=== PATIENT | male | born 1985 | race Caucasian/White ===

== ENCOUNTER 2023-01-23 21:12 | Emergency (ER) | payer BC ==
[~2023-01-23] VITALS: Ht 190.5 cm; Wt 70.3 kg
[2023-01-23 21:13] VITALS: BP 128/88; TEMP 98.5
[2023-01-23] MEDS ORDERED: ACET-2605 PO (21:27)
[2023-01-23] MEDS ORDERED: DICL1KIT14 TP (21:27)
[2023-01-23] MEDS ORDERED: ONDA4TAB5 PO (21:27)
[2023-01-23] MEDS ORDERED: IBUP-1955 PO (21:27)
[2023-01-23 22:52] VITALS: O2SAT 100
== END 2023-01-23 22:52 | disposition home or self-care (01) ==
LOC: ER 21:14
DX: M79.10 Myalgia, unspecified site (principal); Z79.899 Other long term (current) drug therapy; V43.62XA Car passenger injured in collision with other type car in traffic accident, initial encounter; Y93.89 Activity, other specified; Y92.89 Other specified places as the place of occurrence of the external cause; Y99.8 Other external cause status